=== PATIENT | female | born 1955 | race African-American/Black ===

== ENCOUNTER → 2019-12-03 | Outpatient (CLI) | payer MEDICARE ==
[~2019-12-03] MED LIST: ASPI325T4 PO; IOHEXOL 350 MG/ML 100ML IJ ONE
[2019-12-03 10:35] VITALS: BP 156/91
--- NOTE | 2019-12-03 10:35 | NUR ---
PT ARRIVED TO [facility]F CLINIC PT ARRIVED TO [facility] FOR CT. PATIENT IS ALERT AND AWAKE WITH EVEN AND UNLABORED RESPIRATIONS. PATIENT ALERT AND AWAKE WITH EVEN AND UNLABORED RESPIRATIONS. PATIENT IS ON RA WITH NO S/S OF DISTRESS/SOB OR PAIN NOTED. VSS. WILL CARRY OUT MD ORDERS.
--- NOTE | 2019-12-03 10:38 | NUR ---
IV insertion IV access obtained by blake PARRA, via clean sterile technique by inserting [20] gauge catheter at [LAC] after [1] attempt(s). IV secured properly. No trauma to site. Patient tolerated procedure well.
[2019-12-03 11:34] VITALS: BP 187/102
--- NOTE | 2019-12-03 12:10 | NUR ---
Patient back to CT for exam.
--- NOTE | 2019-12-03 12:23 | NUR ---
PATIENT RETURNED BACK TO CHF CLINIC FROM CT PATIENT REMAINS ALERT AND AWAKE, ON RA WITH EVEN AND UNLABORED RESPIRATIONS. NO S/S OF DISTRESS/SOB NOTED. PATIENT TOLERATED EXAM WELL.
--- NOTE | 2019-12-03 12:25 | NUR ---
BLOOD PRESSURE ELEVATED TO 195/108 HR 70. PT DENIES ANY S/S OF HTN, LIKE HEADACHE, DIZZINESS, CHEST DISCOMFORT/PAIN. PATIENT STATES SHE IS IN SOME DISCOMFORT FROM SITTING TOO LONG. PATIENT ASKING TO WALK AROUND TO LESSEN DISCOMFORT. WILL CONTINUE TO MONITOR.
--- NOTE | 2019-12-03 12:34 | NUR ---
PATIENT BLOOD PRESSURE STILL REMAINS ELEVATED BP STILL ELEVATED AT 187/102 HR 82. PT STILL REMAINING ASYMPTOMATIC DECLINING ALL S/S OF ELEVATED BP. PATIENT REFUSING TO CONTINUE WAITING TO RELAX TO DETERMINE IF BLOOD PRESSURE WILL RETURN TO BASELINE. PATIENT STATES SHE HAS BLOOD PRESSURE MEDICATIONS AT HOME SHE WILL TAKE. PATIENT EDUCATED TO TAKE BLOOD PRESSURE AND IS IT REMAINS HIGH TO TAKE MEDICATIONS SOON SHE GETS HOME. PATIENT VERBALIZED UNDERSTANDING. PT ALSO EDUCATED TO CONTINUE MONITORING BP AT HOME, IF IT DOESN'T RETURN TO BASELINE, OR PT DEVELOPS ANY S/S, PATIENT IS INSTRUCTED TO RETURN TO CLINIC OR GO IMMEDIATELY TO THE NEAREST URGENT CARE OR EMERGENCY ROOM FOR EVALUATION. PT VERBALIZED UNDERSTANDING.
--- NOTE | 2019-12-03 12:35 | NUR ---
Discharge Instructions See e-MAR for any mediations given with this visit. Patient education given on disease process. Patient verbalized understanding. Previous labs reviewed. Patient discharged in stable condition with after care instructions and follow up appointment. NOTES PT DECLINED WAITING AT CLINIC FOR BP TO RETURN TO BASELINE. STATING SHE IS GOING HOME, WILL CONTINUE TO MONITOR BP AT HOME, AND TAKE HOME MEDICATIONS. PT EDUCATED REGARDING RISKS TO LEAVING CLINIC WITH ELEVATED BP. PT VERBALIZED UNDERSTANDING BUT STILL DECLINED WAITING HERE AT CLINIC. REITERATED TO PATIENT TO SEEK MEDICAL CARE IF BLOOD PRESSURE DOES NOT RETURN TO NORMAL OR SHE DEVELOPS S/S. PT VERBALIZES UNDERSTANDING.
== END | disposition home or self-care (01) ==
LOC: Rad HDHVI 10:28
PROVIDERS: ATTEND Internal Medicine Cardiovascular Disease
DX: E04.2 Nontoxic multinodular goiter (principal); I70.0 Atherosclerosis of aorta; R94.4 Abnormal results of kidney function studies; R06.02 Shortness of breath
CPT/HCPCS: 36415; 70491; 71260; 82565; G0463; Q9967

== ENCOUNTER → 2019-12-06 | Outpatient (CLI) | payer MEDICARE ==
[~2019-12-06] MED LIST changes: -IOHEXOL 350 MG/ML 100ML IJ ONE
== END | disposition home or self-care (01) ==
LOC: Rad HDHVI 13:55
PROVIDERS: ATTEND Internal Medicine Cardiovascular Disease
DX: I05.8 Other rheumatic mitral valve diseases (principal); R07.89 Other chest pain; R42 Dizziness and giddiness
CPT/HCPCS: 93306

== ENCOUNTER → 2019-12-08 | Outpatient (CLI) | payer MEDICARE ==
[~2019-12-08] VITALS: Ht 170.2 cm; Wt 112.0 kg
[~2019-12-08] MED LIST changes: +ADENOSINE 90 MG/30 ML INJ IV ONE; +ADENOSINE 94 MG in GIVE UN-DILUTED 0 ML IV ONE
== END | disposition home or self-care (01) ==
LOC: Rad HDHVI 13:48
PROVIDERS: ATTEND Internal Medicine Cardiovascular Disease
DX: I10 Essential (primary) hypertension (principal); R42 Dizziness and giddiness; E66.9 Obesity, unspecified; R07.89 Other chest pain
CPT/HCPCS: 78452; 93005; 96374; 96375; A9500; J0153

== ENCOUNTER → 2019-12-20 | Outpatient (CLI) | payer MEDICARE ==
[~2019-12-20] MED LIST changes: -ADENOSINE 90 MG/30 ML INJ IV ONE; -ADENOSINE 94 MG in GIVE UN-DILUTED 0 ML IV ONE
[2019-12-20 12:16] LABS: Basophils # (auto) 0 10 ^3/uL (0-0.2); Basophils % (auto) 0.6 % (0.0-2.0); Eosinophils # (auto) 0 10 ^3/uL (0-0.8); Eosinophils % (auto) 0.6 % (0.0-7.0); Hematocrit 42.5 % (36.0-46.0); Hemoglobin 14.3 g/dL (12.2-16.2); Lymphocytes # (auto) 1.6 10 ^3/uL (0.4-5.4); Mean Corpuscular Hemoglobin 30.7 pg (28.0-32.0); Mean Corpuscular Hgb Conc. 33.8 g/dL (32.0-36.0); Mean Corpuscular Volume 90.9 fL (80.0-100.0); Monocytes # (auto) 0.6 10 ^3/uL (0-1.3); Monocytes % (auto) 7.7 % (0.0-12.0); Neutrophils # (auto) 5.3 10 ^3/uL (1.6-8.6); Neutrophils % (auto) 70.1 % (37.0-80.0); Platelet Count (auto) 312 10^3/uL (140-450); Red Blood Cells 4.67 10^6/uL (4.0-5.20); Red Cell Distribution Width 13.4 % (11.8-14.3); White Blood Cell 7.6 10^3/uL (4.4-10.8)
[2019-12-20 12:22] LABS: Urine Blood Negative /uL (Negative); Urine Specific Gravity 1.045 (1.001-1.035)
[2019-12-20 12:32] LABS: Albumin 3.9 g/dL (3.4-5.0); Calcium 10.4 mg/dL (8.5-10.1); Potassium 4.2 mmol/L (3.5-5.1)
[2019-12-20 12:38] LABS: BUN/Creatinine Ratio 20.6; Bilirubin, Total 0.4 mg/dL (0.2-1.0); Total Protein 7.9 g/dL (6.4-8.2)
[2019-12-20 13:58] LABS: Free T4 (Free Thyroxine) 1.15 ng/dL (0.89-1.76)
== END | disposition home or self-care (01) ==
LOC: LAB 09:07
PROVIDERS: ATTEND Internal Medicine Cardiovascular Disease
DX: I10 Essential (primary) hypertension (principal); D51.3 Other dietary vitamin B12 deficiency anemia; E11.9 Type 2 diabetes mellitus without complications; E55.9 Vitamin D deficiency, unspecified; D64.9 Anemia, unspecified; R00.2 Palpitations; R53.1 Weakness; R30.0 Dysuria
CPT/HCPCS: 36415; 80053; 80061; 81003; 82306; 82607; 83036; 84439; 84443; 85025; 87086

== ENCOUNTER 2020-03-23 22:30 | Inpatient (IN) | payer MEDICARE ==
[~2020-03-23] VITALS: Ht 167.6 cm; Wt 108.6 kg
[2020-03-23 23:14] LABS: Basophils # (auto) 0.1 10 ^3/uL (0-0.2); Basophils % (auto) 0.5 % (0.0-2.0); Eosinophils # (auto) 0.1 10 ^3/uL (0-0.8); Eosinophils % (auto) 0.6 % (0.0-7.0); Hematocrit 40.4 % (36.0-46.0); Hemoglobin 13.7 g/dL (12.2-16.2); Lymphocytes # (auto) 2.3 10 ^3/uL (0.4-5.4); Lymphocytes % (auto) 21.1 % (10.0-50.0); Mean Corpuscular Hemoglobin 30.3 pg (28.0-32.0); Mean Corpuscular Volume 89.1 fL (80.0-100.0); Monocytes # (auto) 1.1 10 ^3/uL (0-1.3); Monocytes % (auto) 9.9 % (0.0-12.0); Neutrophils # (auto) 7.4 10 ^3/uL (1.6-8.6); Neutrophils % (auto) 67.9 % (37.0-80.0); Nucleated Red Blood Cells % 0.1 %; Platelet Count (auto) 284 10^3/uL (140-450); Red Blood Cells 4.53 10^6/uL (4.0-5.20); White Blood Cell 10.9 10^3/uL (4.4-10.8)
[2020-03-23 23:31] LABS: INR 0.99 (0.9-1.15); Partial Thromboplastin Time 21.9 sec (23.0-31.2)
[2020-03-23 23:34] LABS: Potassium 3.6 mmol/L (3.5-5.1)
[2020-03-23 23:38] LABS: Albumin 3.3 g/dL (3.4-5.0); BUN/Creatinine Ratio 24.1; Calcium 10.3 mg/dL (8.5-10.1)
[2020-03-23 23:51] LABS: Bilirubin, Total 0.3 mg/dL (0.2-1.0); Total Protein 7.3 g/dL (6.4-8.2)
[2020-03-24] MEDS ORDERED: ONDANSETRON HCL 4 MG/2 ML VIAL IV ONE (01:30)
[2020-03-24] MEDS ORDERED: MORPHINE SULFATE 4 MG/ML SYR/VIAL IV ONE (01:30)
[2020-03-24] MEDS ORDERED: NITROGLYCERIN 0.2MG/HR TOPICAL PATCH TD ONE (01:45)
[2020-03-24] MEDS ORDERED: ACETAMINOPHEN 325 MG TAB PO PRN (04:15)
[2020-03-24] MEDS ORDERED: MORPHINE SULF INJ 2 MG/ML SYRINGE 1ML IV PRN (04:15)
[2020-03-24] MEDS ORDERED: MORPHINE SULFATE 4 MG/ML SYR/VIAL IV PRN (04:15)
[2020-03-24] MEDS ORDERED: ONDANSETRON HCL 4 MG/2 ML VIAL IV PRN (04:15)
[2020-03-24] MEDS ORDERED: NITROGLYCERIN 0.4 MG SL TAB SL PRN (04:15)
[2020-03-24] MEDS ORDERED: HYDROcodone-ACET 5/325MG TAB PO PRN (04:15)
[2020-03-24] MEDS ORDERED: DOCUSATE SOD 100 MG CAP PO PRN (04:15)
[2020-03-24] MEDS: SODIUM CHLOR 0.9% PF (SALINE LOCK) 10ML VIAL/SYR IV SCH ×2 (06:35→14:02)
[2020-03-24 06:44] LABS: Basophils # (auto) 0.1 10 ^3/uL (0-0.2); Basophils % (auto) 0.6 % (0.0-2.0); Eosinophils # (auto) 0.1 10 ^3/uL (0-0.8); Eosinophils % (auto) 1.1 % (0.0-7.0); Hematocrit 37.7 % (36.0-46.0); Hemoglobin 12.7 g/dL (12.2-16.2); Lymphocytes # (auto) 2.4 10 ^3/uL (0.4-5.4); Lymphocytes % (auto) 28.7 % (10.0-50.0); Mean Corpuscular Hemoglobin 30.2 pg (28.0-32.0); Mean Corpuscular Hgb Conc. 33.7 g/dL (32.0-36.0); Mean Corpuscular Volume 89.8 fL (80.0-100.0); Monocytes # (auto) 0.8 10 ^3/uL (0-1.3); Monocytes % (auto) 9.7 % (0.0-12.0); Neutrophils % (auto) 59.9 % (37.0-80.0); Nucleated Red Blood Cells % 0.1 %; Platelet Count (auto) 262 10^3/uL (140-450); White Blood Cell 8.4 10^3/uL (4.4-10.8)
[2020-03-24 06:51] LABS: Calcium 9.7 mg/dL (8.5-10.1)
[2020-03-24 06:55] LABS: BUN/Creatinine Ratio 37.3; Bilirubin, Total 0.3 mg/dL (0.2-1.0); Total Protein 6.8 g/dL (6.4-8.2)
[2020-03-24 09:06] VITALS: BP 102/56
[2020-03-24] MEDS ORDERED: FAMOTIDINE (10MG/ML) 2ML VL IV SCH ×2 (10:00)
[2020-03-24] MEDS ORDERED: ASCORBIC ACID 500 MG TAB PO SCH (10:00)
[2020-03-24] MEDS ORDERED: MULTIPLE VITAMIN TAB PO SCH (10:00)
[2020-03-24] MEDS ORDERED: HEPARIN SODIUM (PORCINE) 5000 UNITS/ML 1ML VIAL SC SCH (10:00)
[2020-03-24] MEDS ORDERED: ASPirin 81 mg TAB PO SCH (10:00)
[2020-03-24] MEDS ORDERED: DONNATAL 5ml ORAL Elix (BELLADONNA ALK-PHENOBARB) PO ONE ×2 (12:30→12:45)
[2020-03-24] MEDS ORDERED: LIDOCAINE VISCOUS 2% 15ML UD PO ONE ×2 (12:30→12:45)
[2020-03-24] MEDS ORDERED: ALUM & MAG HYDROX-SIMETH LIQ(MAALOX) 30 ML PO ONE ×2 (12:30→12:45)
[2020-03-24] MEDS ORDERED: ATORVASTATIN 20 MG TAB PO SCH (22:00)
== END 2020-03-24 14:16 | disposition left against medical advice (07) | DRG 280 ==
LOC: EDBD 22:30 → EDUNIT# 22:30 → ER 22:32 → TELE 22:33
PROVIDERS: ADMIT Nurse Practitioner Family; ATTEND Internal Medicine
DX: I21.4 Non-ST elevation (NSTEMI) myocardial infarction (principal); N17.0 Acute kidney failure with tubular necrosis; E83.52 Hypercalcemia; K21.9 Gastro-esophageal reflux disease without esophagitis; E66.9 Obesity, unspecified; I12.9 Hypertensive chronic kidney disease with stage 1 through stage 4 chronic kidney disease, or unspecified chronic kidney disease; R79.89 Other specified abnormal findings of blood chemistry; Z53.29 Procedure and treatment not carried out because of patient's decision for other reasons; E78.5 Hyperlipidemia, unspecified; N18.9 Chronic kidney disease, unspecified; F17.210 Nicotine dependence, cigarettes, uncomplicated; Z20.822 Contact with and (suspected) exposure to COVID-19; Z68.38 Body mass index [BMI] 38.0-38.9, adult; Z80.3 Family history of malignant neoplasm of breast; Z80.52 Family history of malignant neoplasm of bladder; Z80.8 Family history of malignant neoplasm of other organs or systems; I25.2 Old myocardial infarction; Z83.3 Family history of diabetes mellitus; Z85.51 Personal history of malignant neoplasm of bladder
CPT/HCPCS: 36415; 71045; 80053; 80061; 84484; 85025; 85379; 85610; 85730; 93005; 96372; 96374; G0378; J3490

== ENCOUNTER → 2020-06-05 | Outpatient (CLI) | payer MEDICARE ==
[2020-06-05 12:02] LABS: Basophils # (auto) 0 10 ^3/uL (0-0.2); Basophils % (auto) 0.5 % (0.0-2.0); Eosinophils # (auto) 0.1 10 ^3/uL (0-0.8); Eosinophils % (auto) 1.6 % (0.0-7.0); Hematocrit 40.5 % (36.0-46.0); Hemoglobin 13.9 g/dL (12.2-16.2); Lymphocytes # (auto) 1.9 10 ^3/uL (0.4-5.4); Mean Corpuscular Hemoglobin 31.2 pg (28.0-32.0); Mean Corpuscular Hgb Conc. 34.4 g/dL (32.0-36.0); Mean Corpuscular Volume 90.7 fL (80.0-100.0); Monocytes # (auto) 0.6 10 ^3/uL (0-1.3); Monocytes % (auto) 7.7 % (0.0-12.0); Neutrophils # (auto) 5.1 10 ^3/uL (1.6-8.6); Neutrophils % (auto) 66.2 % (37.0-80.0); Nucleated Red Blood Cells % 0.1 %; Platelet Count (auto) 283 10^3/uL (140-450); Red Blood Cells 4.47 10^6/uL (4.0-5.20); Red Cell Distribution Width 13.3 % (11.8-14.3); White Blood Cell 7.7 10^3/uL (4.4-10.8)
[2020-06-05 12:04] LABS: Urine Blood Negative /uL (Negative); Urine Specific Gravity 1.028 (1.001-1.035)
[2020-06-05 12:08] LABS: Albumin 3.5 g/dL (3.4-5.0); Calcium 11.2 mg/dL (8.5-10.1); Potassium 4.1 mmol/L (3.5-5.1)
[2020-06-05 12:14] LABS: Bilirubin, Direct 0.1 mg/dL (0-0.2); Bilirubin, Total 0.4 mg/dL (0.2-1.0); Total Protein 7.2 g/dL (6.4-8.2)
== END | disposition home or self-care (01) ==
LOC: LAB 10:05
PROVIDERS: ATTEND Internal Medicine Cardiovascular Disease
DX: D51.3 Other dietary vitamin B12 deficiency anemia (principal); I10 Essential (primary) hypertension; E11.9 Type 2 diabetes mellitus without complications; E55.9 Vitamin D deficiency, unspecified; D64.9 Anemia, unspecified; R00.2 Palpitations; R53.1 Weakness; R30.0 Dysuria
CPT/HCPCS: 36415; 80048; 80061; 80076; 81003; 82306; 83036; 84443; 85025; 87086

== ENCOUNTER → 2020-09-05 | Outpatient (CLI) | payer MEDICARE ==
[~2020-09-05] MED LIST changes: +CLOP75TA28 PO; +ENAL2.5T7 PO; +NITR0.4S29 SL; +[UNRECOGNIZED DRUG - CODE] PO
[2020-09-05 08:23] VITALS: BP 130/86
[2020-09-05 08:37] VITALS: BP 126/86
[2020-09-05 11:35] LABS: Basophils # (auto) 0 10 ^3/uL (0-0.2); Basophils % (auto) 0.5 % (0.0-2.0); Eosinophils # (auto) 0.1 10 ^3/uL (0-0.8); Eosinophils % (auto) 1.6 % (0.0-7.0); Hematocrit 41.3 % (36.0-46.0); Hemoglobin 14.1 g/dL (12.2-16.2); Lymphocytes % (auto) 26.8 % (10.0-50.0); Mean Corpuscular Hemoglobin 30.8 pg (28.0-32.0); Mean Corpuscular Hgb Conc. 34.1 g/dL (32.0-36.0); Mean Corpuscular Volume 90.6 fL (80.0-100.0); Monocytes # (auto) 0.6 10 ^3/uL (0-1.3); Monocytes % (auto) 7.6 % (0.0-12.0); Neutrophils # (auto) 4.7 10 ^3/uL (1.6-8.6); Neutrophils % (auto) 63.5 % (37.0-80.0); Red Blood Cells 4.56 10^6/uL (4.0-5.20); Red Cell Distribution Width 13.2 % (11.8-14.3); White Blood Cell 7.5 10^3/uL (4.4-10.8)
[2020-09-05 11:45] LABS: BUN/Creatinine Ratio 23.5; Calcium 10.5 mg/dL (8.5-10.1); Potassium 3.8 mmol/L (3.5-5.1)
[2020-09-05 11:54] LABS: INR 0.96 (0.9-1.15); Partial Thromboplastin Time 25.9 sec (23.0-31.2)
== END | disposition home or self-care (01) ==
LOC: Rad HDHVI 08:08
PROVIDERS: ATTEND Internal Medicine Cardiovascular Disease
DX: Z01.812 Encounter for preprocedural laboratory examination (principal); I10 Essential (primary) hypertension; R00.2 Palpitations; R06.02 Shortness of breath; I70.0 Atherosclerosis of aorta
CPT/HCPCS: 36415; 71046; 80048; 85025; 85610; 85730; 93005; G0463

== ENCOUNTER 2020-09-07 06:47 | Day surgery (SDC) | payer MEDICARE ==
[~2020-09-07] VITALS: Ht 167.6 cm; Wt 106.1 kg
[~2020-09-07 06:47] MED LIST changes: -ASPI325T4 PO
[2020-09-07] MEDS ORDERED: IOHEXOL 350 MG/ML 100ML IJ ONE (07:24)
[2020-09-07] MEDS ORDERED: LIDOCAINE 2%HCL (LOCAL ANESTH.) INJ 20ML MDV ONE (07:24)
[2020-09-07] MEDS ORDERED: VERAPAMIL 2.5MG/ML INJ 2ML VIAL IV ONE (07:55)
[2020-09-07] MEDS ORDERED: ANGIOMAX 250 MG VIAL IV ONE (07:55)
[2020-09-07] MEDS ORDERED: MIDAZOLAM HCL 2MG/2ML 2ml VIAL (1mg/ml) ONE (07:55)
[2020-09-07] MEDS ORDERED: fentaNYL CITRATE 100 MCG/2 ML VL ONE (07:55)
[2020-09-07] MEDS ORDERED: SODIUM CHL 0.9% 0 ML ONE (07:56)
[2020-09-07] MEDS ORDERED: HEPARIN SODIUM (PORCINE) 5000 UNITS/ML 1ML VIAL ONE (08:45)
[2020-09-07] MEDS ORDERED: ONDANSETRON HCL 4 MG/2 ML VIAL IV PRN (09:30)
[2020-09-07] MEDS ORDERED: ACETAMINOPHEN 500 MG TAB PO PRN (09:30)
[2020-09-07] MEDS ORDERED: HYDROcodone-ACET 5/325MG TAB PO PRN (09:30)
== END 2020-09-07 11:40 | disposition home or self-care (01) ==
LOC: CATH 06:47
PROVIDERS: ATTEND Internal Medicine Cardiovascular Disease
DX: R07.89 Other chest pain (principal); I10 Essential (primary) hypertension; I73.9 Peripheral vascular disease, unspecified; F17.210 Nicotine dependence, cigarettes, uncomplicated; Z91.018 Allergy to other foods; Z91.048 Other nonmedicinal substance allergy status; Z86.718 Personal history of other venous thrombosis and embolism; Z20.822 Contact with and (suspected) exposure to COVID-19; Z79.899 Other long term (current) drug therapy; Z80.3 Family history of malignant neoplasm of breast; Z80.8 Family history of malignant neoplasm of other organs or systems; Z68.37 Body mass index [BMI] 37.0-37.9, adult
CPT/HCPCS: 93458; C1769; C1887; C1894; J1644; J2250; J3010; Q9967; U0003; 99152

== ENCOUNTER → 2022-01-09 | Outpatient (CLI) | payer MEDICARE ==
[2022-01-09 11:23] LABS: Basophils # (auto) 0 10 ^3/uL (0-0.2); Basophils % (auto) 0.6 % (0.0-2.0); Eosinophils # (auto) 0.2 10 ^3/uL (0-0.8); Eosinophils % (auto) 2.1 % (0.0-7.0); Hematocrit 41.6 % (36.0-46.0); Hemoglobin 13.6 g/dL (12.2-16.2); Lymphocytes % (auto) 26.9 % (10.0-50.0); Mean Corpuscular Hemoglobin 29.7 pg (28.0-32.0); Mean Corpuscular Hgb Conc. 32.7 g/dL (32.0-36.0); Mean Corpuscular Volume 90.8 fL (80.0-100.0); Monocytes # (auto) 0.5 10 ^3/uL (0-1.3); Monocytes % (auto) 7.3 % (0.0-12.0); Neutrophils # (auto) 4.6 10 ^3/uL (1.6-8.6); Neutrophils % (auto) 63.1 % (37.0-80.0); Nucleated Red Blood Cells % 0.1 %; Red Blood Cells 4.58 10^6/uL (4.0-5.20); Red Cell Distribution Width 13.3 % (11.8-14.3); White Blood Cell 7.3 10^3/uL (4.4-10.8)
[2022-01-09 11:41] LABS: Albumin 3.5 g/dL (3.4-5.0); BUN/Creatinine Ratio 28.8; Calcium 10.8 mg/dL (8.5-10.1); Potassium 4.8 mmol/L (3.5-5.1); Total Protein 6.9 g/dL (6.4-8.2)
[2022-01-09 11:44] LABS: Bilirubin, Total 0.5 mg/dL (0.2-1.0)
[2022-01-09 12:05] LABS: Free T4 (Free Thyroxine) 1.26 ng/dL (0.89-1.76)
[2022-01-09 13:47] LABS: Urine Specific Gravity 1.025 (1.001-1.035)
[2022-01-09 13:48] LABS: Urine Blood Negative /uL (Negative)
== END | disposition home or self-care (01) ==
LOC: LAB 08:14
PROVIDERS: ATTEND Internal Medicine Cardiovascular Disease
DX: E78.5 Hyperlipidemia, unspecified (principal); E55.9 Vitamin D deficiency, unspecified
CPT/HCPCS: 36415; 80053; 80061; 81003; 82306; 82607; 83036; 84439; 84443; 85025

== ENCOUNTER → 2022-01-15 | Outpatient (CLI) | payer MEDICARE | END | disposition home or self-care (01) | LOC: Rad HDHVI 08:12 | PROVIDERS: ATTEND Internal Medicine Cardiovascular Disease | DX: I34.0 Nonrheumatic mitral (valve) insufficiency (principal); R07.89 Other chest pain; I10 Essential (primary) hypertension | CPT/HCPCS: 93306 ==

== ENCOUNTER → 2022-01-18 | Outpatient (CLI) | payer MEDICARE ==
[~2022-01-18] VITALS: Ht 167.6 cm; Wt 95.7 kg
[~2022-01-18] MED LIST changes: +ADENOSINE 80 MG in GIVE UN-DILUTED 0 ML IV ONE; +ADENOSINE 90 MG/30 ML INJ IV ONE
== END | disposition home or self-care (01) ==
LOC: Rad HDHVI 08:11
PROVIDERS: ATTEND Internal Medicine Cardiovascular Disease
DX: Z01.810 Encounter for preprocedural cardiovascular examination (principal); J44.9 Chronic obstructive pulmonary disease, unspecified; I10 Essential (primary) hypertension; F17.210 Nicotine dependence, cigarettes, uncomplicated
CPT/HCPCS: 78452; 93005; 96374; 96375; A9500; J0153

== ENCOUNTER → 2022-08-07 | Outpatient (CLI) | payer MEDICARE ==
[~2022-08-07] MED LIST changes: -ADENOSINE 80 MG in GIVE UN-DILUTED 0 ML IV ONE; -ADENOSINE 90 MG/30 ML INJ IV ONE; +ENAL1TAB42 PO; -ENAL2.5T7 PO; +IOHEXOL 350 MG/ML 100ML IJ ONE
[2022-08-07 12:33] VITALS: BP 153/89
[2022-08-07 12:47] VITALS: BP 156/77
== END | disposition home or self-care (01) ==
LOC: Rad HDHVI 12:12
PROVIDERS: ATTEND Internal Medicine Cardiovascular Disease
DX: R59.0 Localized enlarged lymph nodes (principal); E04.2 Nontoxic multinodular goiter; I70.0 Atherosclerosis of aorta; N13.30 Unspecified hydronephrosis
CPT/HCPCS: 70491; 71260; G0463; Q9967

== ENCOUNTER → 2022-08-30 | Outpatient (CLI) | payer MEDICARE ==
[~2022-08-30] MED LIST changes: +APIX5TAB PO; -CLOP75TA28 PO; +FAMO20TA10 PO; +HYDR-4188 PO; +IBUP-1456 PO; -IOHEXOL 350 MG/ML 100ML IJ ONE; +METO25TA93 PO; -NITR0.4S29 SL; +SIME80CH49 PO; -[UNRECOGNIZED DRUG - CODE] PO
== END | disposition home or self-care (01) ==
LOC: Rad HDHVI 08:37
PROVIDERS: ATTEND Internal Medicine Cardiovascular Disease
DX: R06.02 Shortness of breath (principal); R07.89 Other chest pain; Z98.890 Other specified postprocedural states
CPT/HCPCS: 71046

== ENCOUNTER → 2022-10-04 | Outpatient (CLI) | payer MEDICARE | END | disposition home or self-care (01) | LOC: Rad HDHVI 10:06 | PROVIDERS: ATTEND Internal Medicine Cardiovascular Disease | DX: I11.9 Hypertensive heart disease without heart failure (principal); R00.2 Palpitations | CPT/HCPCS: 93306 ==

== ENCOUNTER → 2022-10-30 | Outpatient (CLI) | payer MEDICARE ==
[~2022-10-30] MED LIST changes: +ASHW125C PO; +BIOT10004 PO; +CHOL50007 PO; +ENAL5TAB22 PO; +METO25TA36 PO; +NITR0.4S29 SL; +ceFAZolin 1GM VL ONE
[2022-10-30 08:30] VITALS: BP 165/91; PULSE 60; RESP 18; O2SAT 97
[2022-10-30 08:58] VITALS: BP 165/91; PULSE 60; RESP 18; O2SAT 97
== END | disposition home or self-care (01) ==
LOC: CHF HDHVI 08:15
PROVIDERS: ATTEND Internal Medicine Cardiovascular Disease
DX: Z01.818 Encounter for other preprocedural examination (principal); T82.111A Breakdown (mechanical) of cardiac pulse generator (battery), initial encounter; I45.2 Bifascicular block; R94.31 Abnormal electrocardiogram [ECG] [EKG]; I51.7 Cardiomegaly; R06.02 Shortness of breath; X58.XXXA Exposure to other specified factors, initial encounter
CPT/HCPCS: 36415; 80053; 85025; 85610; 85730; 93005; G0463

== ENCOUNTER 2022-10-31 08:36 | Day surgery (SDC) | payer MEDICARE ==
[2022-10-30 11:18] LABS: Basophils # (auto) 0.1 10 ^3/uL (0-0.2); Basophils % (auto) 0.9 % (0.0-2.0); Eosinophils # (auto) 0.1 10 ^3/uL (0-0.8); Eosinophils % (auto) 1.7 % (0.0-7.0); Hematocrit 40.7 % (36.0-46.0); Hemoglobin 13.7 g/dL (12.2-16.2); Lymphocytes # (auto) 2.1 10 ^3/uL (0.4-5.4); Lymphocytes % (auto) 30.4 % (10.0-50.0); Mean Corpuscular Hemoglobin 29.9 pg (28.0-32.0); Mean Corpuscular Hgb Conc. 33.5 g/dL (32.0-36.0); Mean Corpuscular Volume 89.3 fL (80.0-100.0); Monocytes # (auto) 0.6 10 ^3/uL (0-1.3); Monocytes % (auto) 8.4 % (0.0-12.0); Neutrophils % (auto) 58.6 % (37.0-80.0); Red Blood Cells 4.56 10^6/uL (4.0-5.20); White Blood Cell 6.8 10^3/uL (4.4-10.8)
[2022-10-30 11:23] LABS: INR 1.05 (0.9-1.15); Partial Thromboplastin Time 26.9 SEC (24.5-34.5)
[2022-10-30 11:59] LABS: Alanine Aminotransferase 10 U/L (7-40); Albumin 4.7 g/dL (3.2-4.8); Alkaline Phosphatase 97 U/L (46-116); Anion Gap 4 (5-15); Aspartate Aminotransferase 10 U/L (13-40); Bilirubin, Total 0.4 mg/dL (0.2-1.0); Blood Urea Nitrogen 13 mg/dL (9-23); Calcium 10.5 mg/dL (8.7-10.4); Carbon Dioxide 24 mmol/L (20-30); Chloride 111 mmol/L (98-107); Glucose 102 mg/dL (74-106); Potassium 4.2 mmol/L (3.5-5.1); Sodium 139 mmol/L (136-145); Total Protein 7.4 g/dL (5.7-8.2)
[~2022-10-31] VITALS: Ht 167.6 cm; Wt 98.0 kg
[~2022-10-31 08:36] MED LIST changes: -BIOT10004 PO; -CHOL50007 PO; -ENAL5TAB22 PO; -METO25TA93 PO; -ceFAZolin 1GM VL ONE
[2022-10-31] MEDS ORDERED: LIDOCAINE 2%HCL (LOCAL ANESTH.) INJ 20ML MDV ONE (10:18)
[2022-10-31] MEDS ORDERED: VANCOMYCIN HCL 1000 MG VL ONE (10:22)
[2022-10-31] MEDS ORDERED: fentaNYL CITRATE 100 MCG/2 ML VL ONE (10:23)
[2022-10-31] MEDS ORDERED: MIDAZOLAM HCL 2MG/2ML 2ml VIAL (1mg/ml) ONE (10:23)
[2022-10-31] MEDS ORDERED: VANCOMYCIN 1GM/250ML 250 ML IV ONE (10:23)
[2022-10-31 11:40] VITALS: BP 151/93; PULSE 65; RESP 12; O2SAT 96
[2022-10-31 11:54] VITALS: BP 164/95; PULSE 65; RESP 12; O2SAT 95
[2022-10-31 12:09] VITALS: BP 167/98; PULSE 65; RESP 12; O2SAT 95
[2022-10-31 12:24] VITALS: BP 155/95; PULSE 65; RESP 13; O2SAT 95
[2022-10-31 12:39] VITALS: BP 168/100; PULSE 65; RESP 12
== END 2022-10-31 13:36 | disposition home or self-care (01) ==
LOC: CATH 08:36
PROVIDERS: ATTEND Internal Medicine Cardiovascular Disease
DX: T82.128A Displacement of other cardiac electronic device, initial encounter (principal); I49.5 Sick sinus syndrome; I48.0 Paroxysmal atrial fibrillation; I10 Essential (primary) hypertension; F17.210 Nicotine dependence, cigarettes, uncomplicated; E78.5 Hyperlipidemia, unspecified; Y71.3 Surgical instruments, materials and cardiovascular devices (including sutures) associated with adverse incidents; E66.01 Morbid (severe) obesity due to excess calories; Z68.34 Body mass index [BMI] 34.0-34.9, adult; Z83.3 Family history of diabetes mellitus; Z80.3 Family history of malignant neoplasm of breast; Z84.0 Family history of diseases of the skin and subcutaneous tissue; Z80.52 Family history of malignant neoplasm of bladder; Z79.1 Long term (current) use of non-steroidal anti-inflammatories (NSAID); Z72.89 Other problems related to lifestyle; Z79.01 Long term (current) use of anticoagulants; Z91.018 Allergy to other foods; Z91.048 Other nonmedicinal substance allergy status; Z79.899 Other long term (current) drug therapy
CPT/HCPCS: 33215; 71045; 93005; J2250; J3010; J3370; 36415; 80053; 85025; 85610; 85730; 99152

== ENCOUNTER → 2023-01-20 | Outpatient (CLI) | payer MEDICARE ==
[~2023-01-20] MED LIST changes: +IOHEXOL 350 MG/ML 100ML IJ ONE
[2023-01-20 11:48] VITALS: BP 138/77; PULSE 60; RESP 16; O2SAT 94
[2023-01-20 12:06] VITALS: BP 137/86; PULSE 64; RESP 16; O2SAT 94
== END | disposition home or self-care (01) ==
LOC: CHF HDHVI 11:37
PROVIDERS: ATTEND Internal Medicine Cardiovascular Disease
DX: Z01.818 Encounter for other preprocedural examination (principal); I45.2 Bifascicular block; R94.31 Abnormal electrocardiogram [ECG] [EKG]; I51.7 Cardiomegaly; T82.190A Other mechanical complication of cardiac electrode, initial encounter; I48.0 Paroxysmal atrial fibrillation; X58.XXXA Exposure to other specified factors, initial encounter
CPT/HCPCS: 93005; G0463

== ENCOUNTER 2023-01-23 07:50 | Day surgery (SDC) | payer MEDICARE ==
[2023-01-20 14:57] LABS: Basophils # (auto) 0 10 ^3/uL (0-0.2); Basophils % (auto) 0.6 % (0.0-2.0); Eosinophils # (auto) 0.1 10 ^3/uL (0-0.8); Eosinophils % (auto) 1.5 % (0.0-7.0); Hematocrit 41.5 % (36.0-46.0); Hemoglobin 13.8 g/dL (12.2-16.2); Lymphocytes # (auto) 1.6 10 ^3/uL (0.4-5.4); Lymphocytes % (auto) 21.8 % (10.0-50.0); Mean Corpuscular Hemoglobin 30.2 pg (28.0-32.0); Mean Corpuscular Hgb Conc. 33.2 g/dL (32.0-36.0); Mean Corpuscular Volume 91.1 fL (80.0-100.0); Monocytes # (auto) 0.7 10 ^3/uL (0-1.3); Monocytes % (auto) 9.5 % (0.0-12.0); Neutrophils # (auto) 4.9 10 ^3/uL (1.6-8.6); Neutrophils % (auto) 66.6 % (37.0-80.0); Nucleated Red Blood Cells % 0.1 %; Red Blood Cells 4.56 10^6/uL (4.0-5.20); Red Cell Distribution Width 13.8 % (11.8-14.3); White Blood Cell 7.4 10^3/uL (4.4-10.8)
[2023-01-20 15:11] LABS: Chloride 106 mmol/L (98-107); Potassium 4.2 mmol/L (3.5-5.1); Sodium 137 mmol/L (136-145)
[2023-01-20 15:12] LABS: Anion Gap 5 (5-15); Calcium 10.6 mg/dL (8.5-10.1); Carbon Dioxide 26 mmol/L (20-30)
[2023-01-20 15:15] LABS: INR 1.04 (0.9-1.15); Partial Thromboplastin Time 25.9 SEC (24.5-34.5); Prothrombin Time 10.9 sec (9.3-11.8)
[2023-01-20 15:17] LABS: BUN/Creatinine Ratio 17.5 (10.0-20.0); Blood Urea Nitrogen 10 mg/dL (9-23); Glucose 93 mg/dL (74-106)
[~2023-01-23] VITALS: Ht 167.6 cm; Wt 95.3 kg
[~2023-01-23 07:50] MED LIST changes: -APIX5TAB PO; -HYDR-4188 PO; -IOHEXOL 350 MG/ML 100ML IJ ONE; -NITR0.4S29 SL; -SIME80CH49 PO
[2023-01-23] MEDS ORDERED: LIDOCAINE 2%HCL (LOCAL ANESTH.) INJ 20ML MDV ONE (09:07)
[2023-01-23] MEDS ORDERED: MIDAZOLAM HCL 2MG/2ML 2ml VIAL (1mg/ml) ONE (09:12)
[2023-01-23] MEDS ORDERED: VANCOMYCIN 1GM/200ML 250 ML IV ONE (09:12)
[2023-01-23] MEDS ORDERED: fentaNYL CITRATE 100 MCG/2 ML VL ONE (09:12)
[2023-01-23] MEDS ORDERED: VANCOMYCIN HCL 1000 MG VL ONE (09:13)
== END 2023-01-23 11:50 | disposition home or self-care (01) ==
LOC: CATH 07:50
PROVIDERS: ATTEND Internal Medicine Cardiovascular Disease
DX: T82.120A Displacement of cardiac electrode, initial encounter (principal); Y83.8 Other surgical procedures as the cause of abnormal reaction of the patient, or of later complication, without mention of misadventure at the time of the procedure; I49.5 Sick sinus syndrome; R07.89 Other chest pain; R06.02 Shortness of breath; R06.09 Other forms of dyspnea
CPT/HCPCS: 33216; 33234; 36415; 71045; 80048; 85025; 85610; 85730; 93005; C1898; J2250; J3010; J3370; 99152

== ENCOUNTER → 2023-03-13 | Outpatient (CLI) | payer MEDICARE | END | disposition home or self-care (01) | LOC: Rad HDHVI 08:13 | PROVIDERS: ATTEND Internal Medicine Cardiovascular Disease | DX: I08.8 Other rheumatic multiple valve diseases (principal); I10 Essential (primary) hypertension; R00.2 Palpitations | CPT/HCPCS: 93306 ==

== ENCOUNTER 2023-07-14 08:47 | Emergency (ER) | payer MEDICARE ==
[~2023-07-14] VITALS: Ht 167.6 cm; Wt 94.0 kg
[2023-07-14 09:52] LABS: Basophils # (auto) 0 10 ^3/uL (0-0.2); Basophils % (auto) 0.7 % (0.0-2.0); Eosinophils # (auto) 0.1 10 ^3/uL (0-0.8); Eosinophils % (auto) 1.1 % (0.0-7.0); Hematocrit 41.5 % (36.0-46.0); Hemoglobin 13.9 g/dL (12.2-16.2); Lymphocytes # (auto) 1.6 10 ^3/uL (0.4-5.4); Lymphocytes % (auto) 23.2 % (10.0-50.0); Mean Corpuscular Hemoglobin 31.2 pg (28.0-32.0); Mean Corpuscular Hgb Conc. 33.6 g/dL (32.0-36.0); Monocytes # (auto) 0.5 10 ^3/uL (0-1.3); Neutrophils # (auto) 4.6 10 ^3/uL (1.6-8.6); Nucleated Red Blood Cells % 0.1 %; Red Blood Cells 4.46 10^6/uL (4.0-5.20); Red Cell Distribution Width 13.1 % (11.8-14.3); White Blood Cell 6.8 10^3/uL (4.4-10.8)
[2023-07-14 10:09] LABS: Chloride 108 mmol/L (98-107); Potassium 4.3 mmol/L (3.5-5.1); Sodium 138 mmol/L (136-145)
[2023-07-14 10:10] LABS: Anion Gap 1 (5-15); Carbon Dioxide 29 mmol/L (20-30)
[2023-07-14 10:11] LABS: Calcium 11.1 mg/dL (8.5-10.1)
[2023-07-14 10:15] LABS: BUN/Creatinine Ratio 20.3 (10.0-20.0); Blood Urea Nitrogen 12 mg/dL (9-23); Glucose 105 mg/dL (74-106)
[2023-07-14 10:53] LABS: Urine Bacteria FEW /hpf (None Seen); Urine Blood Negative /uL (Negative); Urine Clarity Clear (Clear); Urine Color Yellow (Yellow); Urine Mucus FEW (None Seen); Urine Protein, UAD Negative (Negative); Urine Specific Gravity 1.021 (1.001-1.035); Urine Urobilinogen Normal (Negative); Urine WBC 1 /hpf (0 - 5)
[2023-07-14 10:58] VITALS: TEMP 97.9
[2023-07-14 12:57] VITALS: BP 121/64; PULSE 64; RESP 18; O2SAT 96
[2023-07-14] MEDS ORDERED: DOCUSATE SOD 100 MG CAP PO PRN (13:45)
[2023-07-14] MEDS ORDERED: NITROGLYCERIN 0.4 MG SL TAB SL PRN (13:45)
[2023-07-14] MEDS ORDERED: ONDANSETRON HCL 4 MG/2 ML VIAL IV PRN (13:45)
[2023-07-14] MEDS ORDERED: ACETAMINOPHEN 325 MG TAB PO PRN (13:45)
[2023-07-14] MEDS ORDERED: AMIO200T13 PO (13:45)
[2023-07-14] MEDS ORDERED: HYDROcodone-ACET 5/325MG TAB PO PRN (13:45)
[2023-07-14] MEDS ORDERED: APIX5TAB PO (13:45)
[2023-07-14] MEDS ORDERED: MORPHINE SULFATE INJ 2 MG/ml SYRG IV PRN (13:45)
[2023-07-14] MEDS ORDERED: hydrALAZINE HCL 20 MG/ML VL IV PRN (14:00)
[2023-07-14] MEDS: SODIUM CHLOR 0.9% PF (SALINE LOCK) 10ML VIAL/SYR IV SCH (14:53)
[2023-07-14] MEDS ORDERED: METOPROLOL TARTRATE 25 MG TAB PO SCH (22:00)
[2023-07-14] MEDS ORDERED: APIXABAN 5 MG TAB PO SCH (22:00)
[2023-07-15] MEDS ORDERED: AMIODARONE HCL 200 MG TAB PO SCH (10:00)
[2023-07-15] MEDS ORDERED: FAMOTIDINE 20 MG TAB PO SCH (10:00)
== END 2023-07-14 22:23 | disposition left against medical advice (07) ==
LOC: EDBD 08:47 → ER 08:47 → EDUNIT# 08:47 → EDSEX 08:47 → TELE 13:38 → UNDOADMIN 13:38 → UNDODISIN 16:00 → TELE 22:23
DX: I10 Essential (primary) hypertension (principal); G43.909 Migraine, unspecified, not intractable, without status migrainosus; I48.20 Chronic atrial fibrillation, unspecified; I49.5 Sick sinus syndrome; J44.9 Chronic obstructive pulmonary disease, unspecified; F17.210 Nicotine dependence, cigarettes, uncomplicated
CPT/HCPCS: 36415; 70450; 80048; 81001; 85025; 93005; G0378

== ENCOUNTER → 2023-08-18 | Outpatient (CLI) | payer MEDICARE ==
[~2023-08-18] MED LIST changes: +AMIO200T13 PO; +APIX5TAB PO; +IOHEXOL 350 MG/ML 100ML IJ ONE
[2023-08-18 16:00] VITALS: BP 136/85; PULSE 59; RESP 16; O2SAT 96
[2023-08-18 16:15] VITALS: BP 141/84; PULSE 83; RESP 16; O2SAT 94
== END | disposition home or self-care (01) ==
LOC: Rad HDHVI 15:42
PROVIDERS: ATTEND Internal Medicine Cardiovascular Disease
DX: N28.1 Cyst of kidney, acquired (principal); R06.02 Shortness of breath; R05.9 Cough, unspecified; R42 Dizziness and giddiness; R11.0 Nausea
CPT/HCPCS: 71260; G0463; Q9967

== ENCOUNTER → 2024-02-16 | Outpatient (CLI) | payer MEDICARE ==
[2024-02-16 11:46] VITALS: BP 171/98; PULSE 98; RESP 18; O2SAT 97
[2024-02-16 12:01] VITALS: BP 158/109; PULSE 93; RESP 18; O2SAT 97
--- NOTE | 2024-02-16 12:38 | DVH ---
CT NECK WITH CONTRAST SOFT INDICATION: R/O MASS EXAM DATE: 02/16/2024 11:48 AM COMPARISON: CT NECK WITH CONTRAST SOFT on DOS: 08/07/22 RADIATION DOSE: CTDIvol: 15.66 mGy, DLP: 388.37 mGy*cm PROCEDURE: Using the CT scanner, contiguous axial images were obtained from the great vessels to abov e the orbits following intravenous administration of 100 mL Isovue 370. Coronal and sagittal reforma tted images were then generated. All CT scans at this medical facility are performed using dose modulation techniques as appropriate t o a performed exam including the following: Automated exposure control was utilized; adjustment of th e MA and/or KV according to patient size; and use of iterative reconstruction technique. FINDINGS: Paranasal sinuses pneumatized and clear. No masses in the nasopharynx tonsillar pillars or tongue base. Atrophy of the right parotid gland. Hypertrophy of the left parotid gland. Normal submandibular gland s. Inferior to the left parotid gland there is an enlarged lymph node measuring 3.6 cm in cephalocaudal dimensions and 2.7 cm in AP dimensions and 1.7 cm in transverse dimensions. The node effaces the left sternocleidomastoid and inferior left parotid gland. There are other enlarged nodes present in the l evel 2A lymph node chain bilaterally. Vocal cords are symmetrical in size shape and position Normal-size thyroid gland. Cystic mass in the left lobe of the gland measuring 1.4 cm in greatest abdirizak meter with enhancing partially calcified rim . No enlarged nodes in the lower neck No lesions of the lung apices No destructive lesions of bone IMPRESSION: 1. Palpable masses due to an enlarged left level 2 lymph node located between the inferior left parot id gland in the anterior margin of the left sternocleidomastoid. Other less enlarged nodes are prese nt in the left and right level 2a chains. Biopsy recommended.
== END | disposition home or self-care (01) ==
LOC: Rad HDHVI 11:37
PROVIDERS: ATTEND Internal Medicine Cardiovascular Disease
DX: K11.1 Hypertrophy of salivary gland (principal); K11.0 Atrophy of salivary gland; K63.89 Other specified diseases of intestine; R22.1 Localized swelling, mass and lump, neck; M53.1 Cervicobrachial syndrome
CPT/HCPCS: 70491; G0463; Q9967

== ENCOUNTER → 2024-03-23 | Outpatient (CLI) | payer MEDICARE ==
[~2024-03-23] VITALS: Ht 167.6 cm; Wt 93.4 kg
[~2024-03-23] MED LIST changes: +ADENOSINE 78 MG in GIVE UN-DILUTED 0 ML IV ONE; +ADENOSINE 90 MG/30 ML INJ IV ONE; +CEPH500C PO; -IOHEXOL 350 MG/ML 100ML IJ ONE
== END | disposition home or self-care (01) ==
LOC: Rad HDHVI 08:25
PROVIDERS: ATTEND Internal Medicine Cardiovascular Disease
DX: I45.2 Bifascicular block (principal); I49.3 Ventricular premature depolarization; I45.19 Other right bundle-branch block; F17.210 Nicotine dependence, cigarettes, uncomplicated; E78.00 Pure hypercholesterolemia, unspecified; I10 Essential (primary) hypertension; I49.5 Sick sinus syndrome; I48.0 Paroxysmal atrial fibrillation; I50.33 Acute on chronic diastolic (congestive) heart failure; R00.2 Palpitations; J44.9 Chronic obstructive pulmonary disease, unspecified; I25.2 Old myocardial infarction; I25.5 Ischemic cardiomyopathy; Z95.0 Presence of cardiac pacemaker
CPT/HCPCS: 78452; 93005; 93017; A9500; J0153; 96374; 96375

== ENCOUNTER 2024-04-09 06:11 | Emergency (ER) | payer MEDICARE ==
[~2024-04-09] VITALS: Ht 167.6 cm; Wt 92.9 kg
[~2024-04-09 06:11] MED LIST changes: -ADENOSINE 78 MG in GIVE UN-DILUTED 0 ML IV ONE; -ADENOSINE 90 MG/30 ML INJ IV ONE; -CEPH500C PO
[2024-04-09 07:50] VITALS: BP 184/104; PULSE 86; RESP 18; TEMP 99.3; O2SAT 95
--- NOTE | 2024-04-09 07:58 | ED.PDOC ---
History of Present Illness HPI Comments A 69 YEAR OLD FEMALE PRESENTS TO THE ED WITH COMPLAINT OF WOUND RECHECK. PATIENT STATES SHE HAD HER LEFT PAROTID GLAND REMOVED DUE TO A TUMOR ON 03/26/2024. PATIENT REPORTS SHE WAS HERE IN THE ED TODAY TO HAVE THIS SURGICAL WOUND RECHECKED DUE TO NOTICING MILD REDNESS TO THE AFFECTED AREA. PATIENT DENIES FEVER, CHILLS, SHORTNESS OF BREATH, CHEST PAIN, ABDOMINAL PAIN, NAUSEA, VOMITING, HEADACHE, OR OTHER COMPLAINTS. NO OTHER SYMPTOMS OR MODIFYING FACTORS AT THIS TIME. PATIENT IS ALERT, ORIENTED X 4, AND HAS STEADY GAIT. Chief Complaint: Wound Check Time Seen by MD: 07:37 Primary Care Provider: TOYIN García Notes: Nurses Notes, Medications, Allergies Allergies: Uncoded Allergies: mulberry trees (Allergy, Mild, itching, 09/05/20) tide detergent (Allergy, Mild, itching, 09/05/20) Home Meds Active Scripts Cephalexin Monohydrate (Cephalexin) 500 Mg Cap, 1 CAP PO QID, #40 CAP Prov:FRANSISCA CARLOS 04/09/24 Reported Medications Apixaban Base (ELIQUIS) 5 Mg Tab, 1 TAB PO BID 07/14/23 Amiodarone HCl (Amiodarone HCl) 200 Mg Tab, 2 TAB PO DAILY 07/14/23 Metoprolol Succinate (Toprol Xl) 25 Mg Tab, 1 TAB PO BID for HTN, #30 TAB 5 Refills 10/30/22 Withania Somnifera (Ashwagandha) 125 Mg Cap, 250 MG PO DAILY for SUPPLEMENT, CAP 10/30/22 Ibuprofen (Ibuprofen) 800 Mg Tab, 800 MG PO DAILY for PAIN 08/26/22 Famotidine (PEPCID TABLET) 20 Mg Tb, 20 MG PO DAILY for GERD 08/26/22 Enalapril Maleate (Enalapril Maleate) 2.5 Mg Tab, 5 MG PO DAILY for HTN 09/05/20 Information Source: Patient Mode of Arrival: Ambulatory Severity: Mild Timing: Days Duration: Since onset, Days Prehospital treatment: None Medication Refill: For: Other (WOUND RECHECK) Past Medical History PAST MEDICAL HISTORY: AFIB, High Lipids, HTN, [place] Surgical History: Hernia Repair Surgical History (Other): PAROTID GLAND REMOVAL RUBBER TRIMMER History: No Pertinent RUBBER TRIMMER History Family History Family History: Reviewed,noncontributory to illness Social History Smoker: Cigarettes Alcohol: Occasionally Drugs: Denies Drug Use Lives In: Home Constitutional: denies: chills, diaphoresis, fatigue, fever, malaise, sweats, weakness, others EENTM: denies: blurred vision, double vision, ear bleeding, ear discharge, ear drainage, ear pain, ear ringing, eye pain, eye redness, hearing loss, mouth pain, mouth swelling, nasal discharge, nose bleeding, nose congestion, nose pain, photophobia, tearing, throat pain, throat swelling, voice changes, others Respiratory: denies: cough, hemoptysis, orthopnea, SOB at rest, shortness of breath, SOB with excertion, stridor, wheezing, others Cardiovascular: denies: chest pain, dizzy spells, diaphoresis, Dyspnea on exertion, edema, irregular heart beat, left arm pain, lightheadedness, palpitations, PND, syncope, others Gastrointestinal: denies: abdomen distended, abdominal pain, blood streaked bowels, constipated, diarrhea, dysphagia, difficulty swallowing, hematemesis, melena, nausea, poor appetite, poor fluid intake, rectal bleeding, rectal pain, vomiting, others Genitourinary: denies: abnormal vagina bleeding, burning, dyspareunia, dysuria, flank pain, frequency, hematuria, incontinence, pain, , vagina discharge, urgency, others Neurological: denies: dizziness, fainting, headache, left sided numbness, left sided weakness, numbness, paresthesia, pre-existing deficit, right sided n umbness, right sided weakness, seizure, speech problems, tingling, tremors, weakness, others Musculoskeletal: denies: back pain, gout, joint pain, joint swelling, muscle pain, muscle stiffness, neck pain, others Integumetry: reports: wounds (BEHIND LEFT EAR ), others (WOUND RECHECK); denies: bruises, change in color, change in hair/nails, dryness, laceration, lesions, lumps, rash Allergic/Immunocompromised: denies: Difficulty Healing, Frequent Infections, Hives, Itching, others Hematologic/Lymphatic: denies: anemia, blood clots, easy bleeding, easy bruising, swollen glands, others Endocrine: denies: excessive hunger, excessive sweating, excessive thirst, excessive urination, flushing, intolerance to cold, intolerance to heat, unexplained weight gain, unexplained weight loss, others Psychiatric: denies: anxiety, bipolar disorder, depression, hopeless, panic disorder, schizophrenia, sleepless, suicidal, others All Other Systems: Reviewed and Negative Physical Exam General Appearance: No Apparent Distress, Normal HEENT: Normal ENT Inspection, PERRL/EOMI, Pharynx Normal, TMs Normal Neck: Full Range of Motion, Non-Tender, Normal, Normal Inspection Respiratory: Chest Non-Tender, Lungs Clear, No Accessory Muscle Use, No Respira tory Distress, Normal Breath Sounds Cardiovascular: No Edema, No JVD, No Murmur, No Gallop, Normal Peripheral Pulses, Regular Rate/Rhythm Breast Exam: Deferred Gastrointestinal: No Organomegaly, Non Tender, No Pulsatile Mass, Normal Bowel Sounds, Soft Genitalia: Deferred Pelvic: Deferred Rectal: Deferred Extremities: No calf tenderness, Normal capillary refill, Normal inspection, Normal range of motion, Non-tender, No pedal edema Musculoskeletal : Apperance: Normal Neurologic: Alert, 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 ) Peripheral Pulses: 2+ carotid (R), 2+ carotid (L) Lymphatic: No Adenopathy Was a procedure done? Was a procedure done?: No Differential Dx Considerations may include: SURGICAL WOUND RECHECK, WOUND INFECTION X-Ray, Labs, Meds, VS Vital Signs Date Time Temp Pulse Resp B/P (MAP) Pulse Ox O2 Delivery O2 Flow Rate FiO2 04/09/24 07:50 86 18 95 Room Air 04/09/24 07:50 99.3 86 18 184/104 (130) 95 99.3 04/09/24 06:27 99.3 86 18 184/104 (130) 95 X-Ray, Labs, Meds, VS Comment EXTERNAL MEDICAL RECORDS REVIEWED: [NONE] INDEPENDENT HISTORIANS: [NONE] SOCIAL DETERMINANTS OF HEALTH: [NONE] LABS ORDERED: NONE REVIEWED AND INTERPRETED RESULTS: NONE IMAGING ORDERED: NONE TREATMENTS ORDERED: PATIENT'S WOUND ON THE LEFT SIDE OF HER NECK WAS CLEANED USING NORMAL SALINE. PROCEDURES PERFORMED: NONE CRITICAL CARE TIME: NONE I HAVE DISCUSSED THE PATIENT WITH THE ATTENDING PHYSICIAN DR. ROMAN AND HE AGREES WITH THE PATIENT'S PLAN OF CARE AND DISPOSITION. BASED ON HISTORY OF PRESENT ILLNESS, AND PHYSICAL EXAM, PATIENT WILL BE DISCHARGED HOME. DISCUSSED PLAN FOR DISCHARGE HOME WITH RX [KEFLEX]. MEDICATION WARNINGS GIVEN. SHARED DECISION MAKING: PATIENT INSTRUCTED TO FOLLOW UP WITH PRIMARY CARE PROVIDER IN 1-2 DAYS FOR RE-EVALUATION OF SYMPTOMS. PATIENT VERBALIZES UNDERSTANDING TO RETURN TO ED FOR NEW OR WORSENING SYMPTOMS OR IF FOLLOW UP WITH PCP CANNOT BE OBTAINED. PATIENT FEELS COMFORTABLE GOING HOME AT THIS TIME. ALL QUESTIONS ADDRESSED AT TIME OF DISCHARGE. Time of 1ST Reevaluation: 08:15 Reevaluation 1ST: Improved Patient Education/Counseling: Diagnosis, Treatment, Need For Follow Up Family Education/Counseling: Diagnosis, Treatment, Need For Follow Up Medical Screening: No EMC Exist At This Time Departure 1 Departure Time of Disposition: 08:20 Impression: Primary Impression: Encounter for wound re-check Disposition: 01 HOME / SELF CARE / HOMELESS Condition: Stable Additional Instructions: FOLLOW-UP WITH PCP IN 1 TO 2 DAYS. TAKE MEDICATIONS PRESCRIBED. RETURN TO ED FOR ANY NEW OR WORSENING SYMPTOMS. e-Prescriptions Cephalexin Monohydrate (Cephalexin) 500 Mg Cap 1 CAP PO QID, #40 CAP Prov: FRANSISCA CARLOS 04/09/24 Discharged With: Self Critical Care Note Critical Care Time?: No Stability Stability form required: No I personally scribed for FRANSISCA CARLOS ([email or web address]) on 04/09/24 at 07:58. Electronically submitted by Radhames Garnica ([email or web address]). FRANSISCA CARLOS Apr 09, 2024 07:58
[2024-04-09] MEDS ORDERED: CEPH500C PO (08:09)
== END 2024-04-09 08:12 | disposition home or self-care (01) ==
LOC: ER 06:11
DX: Z48.00 Encounter for change or removal of nonsurgical wound dressing (principal); I10 Essential (primary) hypertension; I48.91 Unspecified atrial fibrillation; E78.5 Hyperlipidemia, unspecified; I25.2 Old myocardial infarction; F17.210 Nicotine dependence, cigarettes, uncomplicated; Z98.890 Other specified postprocedural states; Z79.01 Long term (current) use of anticoagulants; Z79.1 Long term (current) use of non-steroidal anti-inflammatories (NSAID); Z79.899 Other long term (current) drug therapy